=== PATIENT | male | born 1965 | race Asian ===

== ENCOUNTER 2018-04-08 00:36 | Emergency (ER) | payer OTHER ==
[~2018-04-08] VITALS: Ht 172.7 cm; Wt 93.0 kg
--- NOTE | 2018-04-08 01:00 | NUR ---
DR. FRANCO AT BEDSIDE FOR MSE.
[2018-04-08] MEDS ORDERED: TDAP DIPH,PERTUSS,TET VAC/PF 0.5 ML DISP.SYRIN IM ONE ×2 (01:09→01:15)
--- NOTE | 2018-04-08 01:24 | NUR ---
Patient discharged to home in stable conditon. Written and verbal after care instructions given. Patient verbalizes understanding of instructions. Pt ambulated out of ER with steady gait, no acute signs of distress, VSS, all belongings taken.
[2018-04-08 01:25] VITALS: BP 112/83
== END 2018-04-08 01:25 | disposition home or self-care (01) ==
LOC: ER 00:43
DX: S50.311A Abrasion of right elbow, initial encounter (principal); S90.811A Abrasion, right foot, initial encounter; W01.0XXA Fall on same level from slipping, tripping and stumbling without subsequent striking against object, initial encounter; Y93.89 Activity, other specified; Y92.89 Other specified places as the place of occurrence of the external cause; Y99.8 Other external cause status
CPT/HCPCS: 90715; A4663